=== PATIENT | female | born 1975 | race African-American/Black ===

== ENCOUNTER 2020-10-31 18:01 | Emergency (ER) | payer OTHER ==
[~2020-10-31] VITALS: Ht 172.7 cm; Wt 90.7 kg
[2020-10-31 18:07] VITALS: BP 137/80
[2020-10-31 18:29] LABS: URINE BILIRUBIN NEGATIVE (Negative); URINE BLOOD 3+ (Negative); URINE CLARITY CLEAR; URINE COLOR YELLOW; URINE GLUCOSE-RANDOM* NEGATIVE (Negative); URINE KETONES NEGATIVE (Negative); URINE LEUKOCYTES-REFLEX TRACE (Negative); URINE NITRITE-REFLEX NEGATIVE (Negative); URINE PROTEIN (DIPSTICK) TRACE (Negative); URINE SPECIFIC GRAVITY <= 1.005 (1.005-1.035); URINE UROBILINOGEN 0.2 E.U./dl (0.2-1.0)
[2020-10-31 18:48] LABS: HEMATOCRIT 34.9 % (37.0-47.0); HEMOGLOBIN 11.9 gm/dL (12.0-15.0); MCH 34.2 pg (26.0-34.0); MCV 100.5 fL (80.0-100.0); RBC 3.47 mil/uL (4.20-5.00); RDW 13.6 % (10.5-14.5); WBC 5.3 thou/uL (4.0-11.0)
[2020-10-31 18:55] LABS: SQUAMOUS 0-3 Few /LPF (0-3); URINE RBC >20 Many /HPF (NONE SEEN); URINE WBC-REFLEX 0-5 Rare /HPF (0-5)
[2020-10-31 18:56] LABS: CASTS None Seen /LPF (None Seen); CRYSTALS None Seen /LPF (None Seen)
[2020-10-31 18:57] LABS: CALCIUM 8.7 mg/dL (8.5-10.1); CREATININE 0.9 mg/dL (0.6-1.0); POTASSIUM 3.7 mmol/L (3.5-5.1)
[2020-10-31] MEDS ORDERED: METHOCARBAMOL500 M2 PO ×2 (19:14→19:20)
[2020-10-31] MEDS ORDERED: ZOFRAN ODT4 MG PO ×2 (19:14→19:20)
== END 2020-10-31 19:22 | disposition home or self-care (01) ==
LOC: ER 18:01
PROVIDERS: Nurse Practitioner Family
DX: D25.9 Leiomyoma of uterus, unspecified (principal); R42 Dizziness and giddiness; R53.83 Other fatigue; F12.90 Cannabis use, unspecified, uncomplicated; Z88.0 Allergy status to penicillin